=== PATIENT | female | born 1990 | race Caucasian/White ===

== ENCOUNTER 2023-04-27 00:08 | Emergency (ER) | payer OTHER ==
[~2023-04-27] VITALS: Ht 159 cm; Wt 68.0 kg
[2023-04-27] MEDS ORDERED: IBU800 M1 PO (00:20)
[2023-04-27 00:43] LABS: BASO % 0.4 % (0.0-1.0); EOS # 0.4 10*3/uL (0.0-0.4); EOS % 4.4 % (1.0-4.0); HEMATOCRIT 40.3 % (37.0-47.0); LYMPH # 1.5 10*3/uL (1.3-4.4); LYMPH % 18.5 % (27.0-41.0); MEAN CELL VOLUME 85.6 fl (81.0-99.0); MEAN CORPUSCULAR HGB 29.1 pg (27.0-31.0); MEAN PLATELET VOLUME 9.5 fl (9.6-12.3); MONO # 0.7 10*3/uL (0.1-1.0); MONO % 9.1 % (3.0-9.0); NEUT # 5.5 10*3/uL (2.3-7.9); NEUT % 67.4 % (47.0-73.0); PLATELET COUNT AUTOMATED 263 10*3/uL (130-400); RED BLOOD COUNT 4.71 10*6/uL (4.10-5.10); RED CELL DISTRI WIDTH 13.5 % (0-14.5); WHITE BLOOD COUNT 8.1 10*3/uL (4.8-10.8)
[2023-04-27 00:55] LABS: ACT PARTIAL THROMBO TIME 26.9 SECONDS (20.0-32.1)
[2023-04-27 01:20] LABS: BILIRUBIN Negative (Negative); BLOOD Negative (Negative); CLARITY Cloudy (Clear); COLOR Yellow (Yellow); GLUCOSE Negative (Negative); KETONE Trace (Negative); LEUKO ESTERASE Negative (Negative); NITRITE Negative (Negative); SPECIFIC GRAVITY >= 1.030 (1.001-1.030)
[2023-04-27 01:27] LABS: ALKALINE PHOSPHATASE 66 U/L (46-116); BUN 12 mg/dl (9-23); CHLORIDE 108 mmol/L (98-107); LIPASE 29 U/L (12-53); POTASSIUM 3.6 mmol/L (3.4-5.1); SGPT/ALT 8 U/L (10-49); TOTAL PROTEIN 6.6 gm/dL (6.0-8.0)
[2023-04-27 01:44] LABS: CALCIUM OXALATE CRYSTALS 1+; EPITHELIAL CELLS 41-50; RBC 0-2 rbc/hpf (0-2); WBC 0-2 wbc/hpf (0-5)
[2023-04-27] MEDS ORDERED: METRONIDAZOLE500 M1 PO (02:07)
[2023-04-27] MEDS ORDERED: CIPRO500 MG PO (02:07)
== END 2023-04-27 02:15 | disposition home or self-care (01) ==
LOC: ED 00:08
PROVIDERS: Internal Medicine
DX: K52.9 Noninfective gastroenteritis and colitis, unspecified (principal); R11.2 Nausea with vomiting, unspecified; F17.200 Nicotine dependence, unspecified, uncomplicated; Z79.899 Other long term (current) drug therapy; Z98.51 Tubal ligation status; Z98.890 Other specified postprocedural states

== ENCOUNTER → 2023-05-27 | Outpatient (CLI) | payer OTHER ==
[~2023-05-27] MED LIST: CIPRO500 MG PO; IBU800 M1 PO; METRONIDAZOLE500 M1 PO
== END | disposition home or self-care (01) ==
LOC: MRI 10:33
PROVIDERS: ATTEND Internal Medicine Hematology & Oncology
DX: C71.1 Malignant neoplasm of frontal lobe (principal)

== ENCOUNTER 2023-10-09 15:14 | Emergency (ER) | payer OTHER ==
[~2023-10-09] VITALS: Ht 157.4 cm; Wt 70.8 kg
== END 2023-10-09 17:31 | disposition home or self-care (01) ==
LOC: ED 15:14
DX: J06.9 Acute upper respiratory infection, unspecified (principal); R51.9 Headache, unspecified; F90.9 Attention-deficit hyperactivity disorder, unspecified type; Z98.890 Other specified postprocedural states; Z98.51 Tubal ligation status; F17.210 Nicotine dependence, cigarettes, uncomplicated; Z20.822 Contact with and (suspected) exposure to COVID-19

== ENCOUNTER 2023-11-29 16:22 | Emergency (ER) | payer OTHER ==
[~2023-11-29] VITALS: Ht 157.4 cm; Wt 68.0 kg
[2023-11-29 16:59] LABS: BASO # 0.1 10*3/uL (0.0-0.1); BASO % 0.8 % (0.0-1.0); EOS # 0.9 10*3/uL (0.0-0.4); EOS % 6.8 % (1.0-4.0); HEMATOCRIT 40.7 % (37.0-47.0); LYMPH # 3.1 10*3/uL (1.3-4.4); LYMPH % 23.3 % (27.0-41.0); MEAN CELL VOLUME 87.5 fl (81.0-99.0); MEAN CORPUSCULAR HGB 28.6 pg (27.0-31.0); MEAN CORPUSCULAR HGB CONC 32.7 g/dl (33.0-37.0); MEAN PLATELET VOLUME 9.2 fl (9.6-12.3); MONO # 0.9 10*3/uL (0.1-1.0); MONO % 6.5 % (3.0-9.0); NEUT # 8.3 10*3/uL (2.3-7.9); NEUT % 61.9 % (47.0-73.0); PLATELET COUNT AUTOMATED 375 10*3/uL (130-400); RED BLOOD COUNT 4.65 10*6/uL (4.10-5.10); RED CELL DISTRI WIDTH 13.9 % (0-14.5); WHITE BLOOD COUNT 13.3 10*3/uL (4.8-10.8)
[2023-11-29] MEDS ORDERED: hydrALAZINE hydrochloride 20 MG/ML VIAL IV ONE (17:05)
[2023-11-29 17:11] LABS: ACT PARTIAL THROMBO TIME 26.2 SECONDS (20.0-32.1)
[2023-11-29 17:20] LABS: ALKALINE PHOSPHATASE 65 U/L (46-116); BUN 7 mg/dl (9-23); CHLORIDE 107 mmol/L (98-107); LIPASE 29 U/L (12-53); POTASSIUM 3.5 mmol/L (3.4-5.1); SGPT/ALT 10 U/L (5-49); TOTAL PROTEIN 7.5 gm/dL (6.0-8.0)
[2023-11-29 17:21] LABS: BETA-HCG, QUANT < 3.0 mIU/mL (3-10)
== END 2023-11-29 20:28 | disposition left against medical advice (07) ==
LOC: ED 16:22
PROVIDERS: Emergency Medicine
DX: R03.0 Elevated blood-pressure reading, without diagnosis of hypertension (principal); G43.909 Migraine, unspecified, not intractable, without status migrainosus; R10.2 Pelvic and perineal pain; F90.9 Attention-deficit hyperactivity disorder, unspecified type; Z98.51 Tubal ligation status; Z98.890 Other specified postprocedural states

== ENCOUNTER 2024-06-08 00:46 | Emergency (ER) | payer SELFPAY ==
[~2024-06-08] VITALS: Ht 157.4 cm; Wt 77.7 kg
[2024-06-08 01:34] LABS: BASO # 0.1 10*3/uL (0.0-0.1); BASO % 0.6 % (0.0-1.0); EOS # 0.5 10*3/uL (0.0-0.4); EOS % 3.9 % (1.0-4.0); HEMATOCRIT 35.1 % (37.0-47.0); LYMPH # 1.9 10*3/uL (1.3-4.4); LYMPH % 15.1 % (27.0-41.0); MEAN CELL VOLUME 85.4 fl (81.0-99.0); MEAN CORPUSCULAR HGB 28.5 pg (27.0-31.0); MEAN CORPUSCULAR HGB CONC 33.3 g/dl (33.0-37.0); MONO # 1.1 10*3/uL (0.1-1.0); MONO % 8.6 % (3.0-9.0); NEUT # 9.2 10*3/uL (2.3-7.9); NEUT % 71.4 % (47.0-73.0); PLATELET COUNT AUTOMATED 333 10*3/uL (130-400); RED BLOOD COUNT 4.11 10*6/uL (4.10-5.10); WHITE BLOOD COUNT 12.9 10*3/uL (4.8-10.8)
[2024-06-08 01:56] LABS: ALKALINE PHOSPHATASE 95 U/L (46-116); BUN 8 mg/dl (9-23); CHLORIDE 107 mmol/L (98-107); POTASSIUM 3.3 mmol/L (3.4-5.1); SGPT/ALT 13 U/L (5-49)
[2024-06-08] MEDS ORDERED: SODIUM CHLORIDE 0.9% 1,000 ML IV SCH (02:00)
[2024-06-08] MEDS ORDERED: AZITHROMYCIN 250 ML IV ONE (02:00)
[2024-06-08] MEDS ORDERED: Ceftriaxone Sodium 1 GM/10 ML SYR IV ONE (02:00)
[2024-06-08] MEDS ORDERED: MUCINEX1200 M1 PO (11:26)
[2024-06-08] MEDS ORDERED: LEVOFLOXACIN750 M2 PO (11:26)
== END 2024-06-08 03:27 | disposition left against medical advice (07) ==
LOC: ED 00:46
PROVIDERS: Internal Medicine
DX: A41.9 Sepsis, unspecified organism (principal); Z20.822 Contact with and (suspected) exposure to COVID-19; J18.9 Pneumonia, unspecified organism; Z98.890 Other specified postprocedural states; Z98.51 Tubal ligation status

== ENCOUNTER 2024-06-08 05:00 | Inpatient (IN) | payer SELFPAY ==
[2024-06-08 05:14] VITALS: BP 142/92
[2024-06-08] MEDS ORDERED: AZITHROMYCIN 250 ML IV ONE (05:20)
[2024-06-08] MEDS ORDERED: Ceftriaxone Sodium 1 GM/10 ML SYR IV ONE (05:20)
[2024-06-08] MEDS ORDERED: SODIUM CHLORIDE 0.9% 1,000 ML IV SCH (05:25)
[2024-06-08] MEDS ORDERED: ACETAMINOPHEN 650 MG SUPP R PRN (06:45)
[2024-06-08] MEDS ORDERED: ACETAMINOPHEN 325 MG TAB PO PRN (06:45)
[2024-06-08] MEDS ORDERED: Ondansetron Hydrochloride 4 MG/2 ML VIAL IV PRN (06:45)
[2024-06-08] MEDS ORDERED: MORPHINE Sulfate 2 MG/ML SYR IV PRN (06:45)
[2024-06-08] MEDS ORDERED: TEMAZEPAM 15 MG CAP PO PRN (06:45)
[2024-06-08] MEDS ORDERED: Magnesium Hydroxide 30 ML UDC PO PRN (06:45)
[2024-06-08] MEDS ORDERED: BISACODYL 10 MG SUPP R PRN (06:45)
[2024-06-08] MEDS ORDERED: BISACODYL 5 MG TAB PO PRN (06:45)
[2024-06-08] MEDS ORDERED: Albuterol Sulf/Ipratropium 3 ML VIAL NEB SCH (06:50)
[2024-06-08] MEDS ORDERED: Ceftriaxone Sodium 1 GM in SYRINGE INFUSION 10 ML IV SCH (08:00)
[2024-06-08] MEDS ORDERED: AZITHROMYCIN 250 ML IV SCH (09:00)
[2024-06-08 09:31] VITALS: BP 131/64
[2024-06-08] MEDS ORDERED: Enoxaparin Sodium 40 MG/0.4 ML SYR SC SCH (10:00)
[2024-06-08] MEDS ORDERED: LEVOFLOXACIN750 M2 PO (11:26)
[2024-06-08] MEDS ORDERED: MUCINEX1200 M1 PO (11:26)
== END 2024-06-08 11:48 | disposition home or self-care (01) | DRG 871 ==
LOC: ED 05:00 → EDHOLD 06:18
PROVIDERS: ADMIT Internal Medicine; ATTEND Internal Medicine
DX: A41.9 Sepsis, unspecified organism (principal); J15.69 Pneumonia due to other Gram-negative bacteria; E87.1 Hypo-osmolality and hyponatremia; G43.909 Migraine, unspecified, not intractable, without status migrainosus; D64.9 Anemia, unspecified; E87.6 Hypokalemia; R73.9 Hyperglycemia, unspecified; F17.210 Nicotine dependence, cigarettes, uncomplicated

== ENCOUNTER 2024-08-19 07:36 | Emergency (ER) | payer OTHER ==
[~2024-08-19] VITALS: Ht 157.4 cm; Wt 70.3 kg
[~2024-08-19 07:36] MED LIST changes: +LEVOFLOXACIN750 M2 PO; +MUCINEX1200 M1 PO
[2024-08-19] MEDS ORDERED: Albuterol Sulf/Ipratropium 3 ML VIAL NEB ONE (08:20)
[2024-08-19 08:49] LABS: BASO # 0.1 10*3/uL (0.0-0.1); BASO % 0.8 % (0.0-1.0); EOS # 0.7 10*3/uL (0.0-0.4); HEMATOCRIT 39.4 % (37.0-47.0); MEAN CORPUSCULAR HGB 27.9 pg (27.0-31.0); MEAN CORPUSCULAR HGB CONC 32.5 g/dl (33.0-37.0); MEAN PLATELET VOLUME 9.3 fl (9.6-12.3); MONO # 1.1 10*3/uL (0.1-1.0); MONO % 9.3 % (3.0-9.0); NEUT # 7.9 10*3/uL (2.3-7.9); NEUT % 69.1 % (47.0-73.0); PLATELET COUNT AUTOMATED 356 10*3/uL (130-400); RED BLOOD COUNT 4.58 10*6/uL (4.10-5.10); RED CELL DISTRI WIDTH 14.3 % (0-14.5); WHITE BLOOD COUNT 11.5 10*3/uL (4.8-10.8)
[2024-08-19 09:09] LABS: BUN 7 mg/dl (9-23); CHLORIDE 108 mmol/L (98-107); POTASSIUM 3.5 mmol/L (3.4-5.1)
[2024-08-19 09:27] LABS: B-hCG (QUALITATIVE) NEGATIVE (NEGATIVE)
[2024-08-19] MEDS ORDERED: AVPAK AZITHROM250 M1 PO (10:00)
== END 2024-08-19 10:03 | disposition home or self-care (01) ==
LOC: ED 07:36
PROVIDERS: Internal Medicine
DX: J40 Bronchitis, not specified as acute or chronic (principal); Z20.822 Contact with and (suspected) exposure to COVID-19; F90.9 Attention-deficit hyperactivity disorder, unspecified type; F17.290 Nicotine dependence, other tobacco product, uncomplicated; Z98.890 Other specified postprocedural states; Z98.51 Tubal ligation status

== ENCOUNTER 2024-09-16 20:33 | Emergency (ER) | payer OTHER ==
[~2024-09-16] VITALS: Ht 157.4 cm; Wt 68.0 kg
[~2024-09-16 20:33] MED LIST changes: +AVPAK AZITHROM250 M1 PO
[2024-09-16 22:02] LABS: BASO # 0.1 10*3/uL (0.0-0.1); BASO % 0.8 % (0.0-1.0); EOS # 0.7 10*3/uL (0.0-0.4); EOS % 7.1 % (1.0-4.0); HEMATOCRIT 37.7 % (37.0-47.0); MEAN CELL VOLUME 86.9 fl (81.0-99.0); MEAN CORPUSCULAR HGB 28.1 pg (27.0-31.0); MEAN CORPUSCULAR HGB CONC 32.4 g/dl (33.0-37.0); MEAN PLATELET VOLUME 8.9 fl (9.6-12.3); MONO # 0.9 10*3/uL (0.1-1.0); MONO % 9.6 % (3.0-9.0); NEUT # 4.8 10*3/uL (2.3-7.9); NEUT % 49.8 % (47.0-73.0); PLATELET COUNT AUTOMATED 347 10*3/uL (130-400); RED BLOOD COUNT 4.34 10*6/uL (4.10-5.10); RED CELL DISTRI WIDTH 14.4 % (0-14.5); WHITE BLOOD COUNT 9.7 10*3/uL (4.8-10.8)
[2024-09-16 22:23] LABS: ALKALINE PHOSPHATASE 72 U/L (46-116); BUN 9 mg/dl (9-23); CHLORIDE 108 mmol/L (98-107); POTASSIUM 3.5 mmol/L (3.4-5.1); SGPT/ALT 9 U/L (5-49); TOTAL PROTEIN 6.8 gm/dL (6.0-8.0)
[2024-09-16 22:24] LABS: ETHYL ALCOHOL < 3.0 mg/dl (<3)
[2024-09-16 23:46] LABS: BILIRUBIN Negative (Negative); BLOOD Negative (Negative); CLARITY Clear (Clear); COLOR Yellow (Yellow); GLUCOSE Negative (Negative); KETONE Negative (Negative); LEUKO ESTERASE Negative (Negative); NITRITE Negative (Negative); SPECIFIC GRAVITY 1.025 (1.001-1.030)
[2024-09-16 23:53] LABS: URINE AMPHETAMINES Negative (1000ng/ml); URINE BARBITURATES Negative (200ng/ml); URINE BENZODIAZEPINES Negative (200ng/ml); URINE CANNABINOIDS (THC) Negative (50ng/ml); URINE COCAINE Positive (300ng/ml); URINE METHADONE Negative (300ng/ml); URINE OPIATES Negative (300ng/ml); URINE PHENCYCLIDINE Negative (25ng/ml)
[2024-09-17 00:06] LABS: EPITHELIAL CELLS 21-30
[2024-09-17 00:07] LABS: WBC 0-2 wbc/hpf (0-5)
== END 2024-09-17 00:39 | disposition home or self-care (01) ==
LOC: ED 20:33
PROVIDERS: Nurse Practitioner Family
DX: R56.9 Unspecified convulsions (principal); M79.10 Myalgia, unspecified site; F14.90 Cocaine use, unspecified, uncomplicated; E87.6 Hypokalemia; E87.1 Hypo-osmolality and hyponatremia; D64.9 Anemia, unspecified; G43.909 Migraine, unspecified, not intractable, without status migrainosus; F90.9 Attention-deficit hyperactivity disorder, unspecified type; F17.200 Nicotine dependence, unspecified, uncomplicated; Z98.890 Other specified postprocedural states

== ENCOUNTER 2025-05-03 13:07 | Emergency (ER) | payer OTHER ==
[~2025-05-03] VITALS: Ht 157.4 cm; Wt 70.3 kg
== END 2025-05-03 15:24 | disposition home or self-care (01) ==
LOC: ED 13:07
DX: S93.401A Sprain of unspecified ligament of right ankle, initial encounter (principal); Z79.899 Other long term (current) drug therapy; W18.31XA Fall on same level due to stepping on an object, initial encounter; Y93.89 Activity, other specified; Y92.89 Other specified places as the place of occurrence of the external cause; Y99.8 Other external cause status